=== PATIENT | male | born 1990 | race American Indian/Alaskan Native ===

== ENCOUNTER 2016-08-16 01:46 | Emergency (ER) | payer MEDICAID ==
[2016-08-16 02:07] VITALS: BP 153/93
[2016-08-16] MEDS: DUONEB 0.5 MG-3 MG/3 ML SOLN IH ONE ×2 (02:10→05:00)
[2016-08-16 02:48] LABS: Basophils % (Auto) 0.7 % (0.0-1.8); Eosinophils % (Auto) 7.1 % (0.0-4.3); Hematocrit 44.8 % (35.5-45.6); Hemoglobin 15.1 gm/dl (11.8-15.2); Mean Corpuscular HGB Conc 34 % (32-34); Mean Corpuscular Hemoglobin 28 pg (28-32); Mean Corpuscular Volume 84 fl (84-94); Platelet Count 348 K/mm3 (140-440); Red Blood Count 5.33 M/mm3 (3.65-5.03); Red Cell Distribution Width 14.1 % (13.2-15.2); White Blood Count 9.8 K/mm3 (4.5-11.0)
[2016-08-16 03:08] LABS: Anion Gap 19 mmol/L; Blood Urea Nitrogen 8 mg/dL (9-20); Calcium 9.3 mg/dL (8.4-10.2); Carbon Dioxide 26 mmol/L (22-30); Chloride 102.1 mmol/L (98-107); Glucose 97 mg/dL (75-100); Potassium 4.1 mmol/L (3.6-5.0); Sodium 143 mmol/L (137-145)
--- NOTE | 2016-08-16 07:21 | XRay Report ---
ROUTINE CHEST, TWO VIEWS: HISTORY: Shortness of breath. The trachea, heart, mediastinal contour, lung andino and bony thorax are unremarkable. IMPRESSION: Unremarkable chest x-ray.
[2016-08-16] MEDS ORDERED: DECADRON PO ONE (07:34)
[2016-08-16] MEDS: DELTASONE PO ONE (07:47)
--- NOTE | 2016-08-16 07:55 | Emergency Department Report ---
ED Asthma HPI - General Chief Complaint: Adult Asthma Stated Complaint: ASTHMA Source: patient Mode of arrival: Ambulatory Limitations: No Limitations - History of Present Illness Initial Comments: 25-year-old -[place] male with a past medical history of asthma comes in today for complaint of having difficulty breathing, asthma flare with cough and wheezing since Monday. Patient reports progressively getting worse. He has been using his nebulizer at home but without much resolution. He denies any fever chills no nausea no vomiting. No recent URIs. -: Gradual, days(s) (2) Asthma History: adult onset Severity: moderate - Related Data Current Asthma Therapy: inhaled bronchodilator Previous Rx's Medication Instructions Recorded Last Taken Type ALBUTEROL NEB's [Proventil 0.083% 2.5 mg IH TID PRN #1 box 08/16/16 Unknown Rx NEBS] Azithromycin [Zithromax] 250 mg PO QDAY #6 tablet 08/16/16 Unknown Rx Allergies Allergy/AdvReac Type Severity Reaction Status Date / Time peanut Allergy Unknown Verified 03/12/16 08:25 ED Review of Systems ROS: Stated complaint: ASTHMA Other details as noted in HPI Constitutional: denies: chills, fever Eyes: denies: eye pain, eye discharge, vision change ENT: denies: ear pain, throat pain Respiratory: cough, shortness of breath, wheezing Cardiovascular: denies: chest pain, palpitations Endocrine: no symptoms reported Gastrointestinal: denies: abdominal pain, nausea, diarrhea Genitourinary: denies: urgency, dysuria ED Past Medical Hx - Past Medical History Previous Medical History?: Yes Hx Seizures: Yes Hx Asthma: Yes - Surgical History Past Surgical History?: No - Social History Smoking Status: Never Smoker Substance Use Type: None - Medications Home Medications: Home Medications Medication Instructions Recorded Confirmed Last Taken Type ALBUTEROL NEB's [Proventil 0.083% 2.5 mg IH TID PRN #1 box 08/16/16 Unknown Rx NEBS] Azithromycin [Zithromax] 250 mg PO QDAY #6 tablet 08/16/16 Unknown Rx ED Physical Exam - General Limitations: No Limitations General appearance: alert, in no apparent distress - Head Head exam: Present: atraumatic, normocephalic - Eye Eye exam: Present: normal appearance, PERRL, EOMI Pupils: Present: normal accommodation - ENT ENT exam: Present: normal exam, mucous membranes moist - Neck Neck exam: Present: normal inspection - Respiratory Respiratory exam: Present: prolonged expiratory - Cardiovascular Cardiovascular Exam: Present: regular rate, normal rhythm - GI/Abdominal GI/Abdominal exam: Present: soft. Absent: distended ED Course Vital Signs 08/16/16 08/16/16 08/16/16 02:04 02:10 02:25 Temperature 98.4 F Pulse Rate 90 Pulse Rate [ 99 H 102 H Anterior] Respiratory 24 Rate Respiratory 19 22 Rate [Anterior] Blood Pressure 153/93 O2 Sat by Pulse 97 Oximetry 08/16/16 08/16/16 08/16/16 05:00 05:30 08:15 Temperature Pulse Rate Pulse Rate [ 105 H 90 84 Anterior] Respiratory Rate Respiratory 22 20 20 Rate [Anterior] Blood Pressure O2 Sat by Pulse Oximetry 08/16/16 08/16/16 11:51 11:52 Temperature Pulse Rate Pulse Rate [ 86 84 Anterior] Respiratory Rate Respiratory 20 20 Rate [Anterior] Blood Pressure O2 Sat by Pulse Oximetry - Reevaluation(s) Reevaluation #1: 08/16/16 13:27 Patient reports that he feels much better after having the last dose of albuterol. ED Medical Decision Making - Lab Data Result diagrams: 08/16/16 02:23 08/16/16 02:23 - Radiology Data Radiology results: report reviewed, image reviewed ROUTINE CHEST, TWO VIEWS: HISTORY: Shortness of breath. The trachea, heart, mediastinal contour, lung andino and bony thorax are unremarkable. IMPRESSION: Unremarkable chest x-ray. Transcribed By: TTR Dictated By: TAYA PEREZ JR, MD Electronically Authenticated By: TAYA PEREZ JR, MD Signed Date/Time: 08/16/1613 - Medical Decision Making 25-year-old male comes in for asthma and difficulty breathing. Patient has had 2 rounds of dual nebs. Chest x-ray was within normal limits. Patient's been ordered else in 40 mg by mouth now area Ordered another round of straight albuterol neb. Will discharge patient on steroids and albuterol inhaler. Discussed with patient needs to follow with primary care provider. Patient verbalized understanding. Critical care attestation.: If time is entered above; I have spent that time in minutes in the direct care of this critically ill patient, excluding procedure time. ED Disposition Clinical Impression: Asthma attack, Bronchitis Disposition: DISCHARGED TO HOME OR SELFCARE Is pt being admited?: No Does the pt Need Aspirin: No Condition: Stable Instructions: Chronic Bronchitis (ED) Additional Instructions: Please take medication as prescribed. Please follow up with her primary care provider for your asthma may not be managed as best as can be. I have referred her to one listed below your discharge summary. Prescriptions: ALBUTEROL NEB's [Proventil 0.083% NEBS] 2.5 mg IH TID PRN #1 box PRN Reason: Wheezing Azithromycin [Zithromax] 250 mg PO QDAY #6 tablet Referrals: PRIMARY CARE, [Primary Care Provider] - 3-5 Days [facility] [Outside] - 3-5 Days Forms: Work/School Release Form(ED)
[2016-08-16] MEDS: PROVENTIL IH ONE ×2 (08:14→11:49)
[2016-08-16] MEDS: MAGNESIUM SULFATE 2GM/50ML 2 GM/50 ML BAG IV ONE (09:20)
[2016-08-16] MEDS: ATROVENT IH ONE (11:50)
== END 2016-08-16 13:14 | disposition home or self-care (01) ==
LOC: ED 01:46
DX: J45.909 Unspecified asthma, uncomplicated (principal); R56.9 Unspecified convulsions; Z91.010 Allergy to peanuts
CPT/HCPCS: 36415; 71020; 80048; 85025; 94640; 96365; 99284; J3475; J7512